=== PATIENT | male | born 1965 | race Caucasian/White ===

== ENCOUNTER 2016-10-10 07:32 | Outpatient (CLI) | payer OTHER ==
[2016-10-10 13:42] LABS: BASOPHILS % (AUTO) 0.5 %; EOSINOPHILS # (AUTO) 0.2 10^3/uL (0.0-0.7); EOSINOPHILS % (AUTO) 3.7 %; HCT - HEMATOCRIT 45.5 % (42.0-52.0); HGB - HEMOGLOBIN 14.7 g/dL (14.0-18.0); LYMPHOCYTES # (AUTO) 1.9 10^3/uL (1.5-3.5); LYMPHOCYTES % (AUTO) 28.4 %; MEAN CORPUSCULAR HEMOGLOBIN 26.3 pg (27.0-31.0); MEAN CORPUSCULAR HGB CONC 32.2 g/dL (32.0-36.0); MEAN CORPUSCULAR VOLUME 81.7 fL (80.0-94.0); MONOCYTES # (AUTO) 0.6 10^3/uL (0.0-1.0); NEUTROPHILS # (AUTO) 3.8 10^3/uL (1.5-6.6); NEUTROPHILS % (AUTO) 58.4 %; RED BLOOD COUNT 5.57 10^6/uL (4.70-6.10); UNCORRECTED WHITE BLOOD COUNT 6.6 x10^3/uL; WHITE BLOOD COUNT 6.6 x10^3/uL (4.8-10.8)
[2016-10-10 13:56] LABS: HEMOGLOBIN A1C 0.62 g/dL
[2016-10-10 13:57] LABS: ALBUMIN/GLOBULIN RATIO 1.3 (1.0-2.2); BILIRUBIN,TOTAL 1.1 mg/dL (0.2-1.0); BUN - BLOOD UREA NITROGEN 13 mg/dL (6-20); CALCIUM 9.3 mg/dL (8.5-10.3); CARBON DIOXIDE - CO2 26 mmol/L (21-32); CHLORIDE 104 mmol/L (101-111); CHOL/HDL RATIO 6.6 (<5.0); CHOLESTEROL 206 mg/dL; GFR - MDRD 79 (>89); GLUCOSE 95 mg/dL (70-100); HDL CHOLESTEROL 31 mg/dL; LDL/HDL RATIO 5.2 (<3.6); POTASSIUM 4.2 mmol/L (3.5-5.0); SODIUM 138 mmol/L (135-145); TOTAL PROTEIN 7.6 g/dL (6.7-8.2); TRIGLYCERIDES 74 mg/dL; VLDL CHOLESTEROL 15 mg/dL
== END 2016-10-10 07:33 | disposition home or self-care (01) ==
LOC: LAB.WCP 07:32
PROVIDERS: ATTEND Family Medicine
DX: Z00.00 Encounter for general adult medical examination without abnormal findings (principal)
CPT/HCPCS: 36415; 80053; 80061; 83036; 84153; 84443; 85025

== ENCOUNTER 2016-11-18 11:49 | Day surgery (SDC) | payer OTHER ==
[2016-11-18] MEDS ORDERED: LACTATED RINGERS 1,000 ML IV ONE (12:35)
[2016-11-18] MEDS ORDERED: MIDAZOLAM 2 MG/2 ML VIAL IVP ONE (13:25)
[2016-11-18] MEDS ORDERED: fentaNYL 100 MCG/2 ML VIAL IVP ONE (13:25)
[2016-11-18 14:52] VITALS: BP 114/65
== END 2016-11-18 11:50 | disposition home or self-care (01) ==
LOC: SDS 11:49 → MERGE 13:00
PROVIDERS: ATTEND Surgery
PROC: 0DBL8ZX Excision of Transverse Colon, Via Natural or Artificial Opening Endoscopic, Diagnostic (ICD-10-PCS; 2016-11-18)
PROC: 0DBN8ZX Excision of Sigmoid Colon, Via Natural or Artificial Opening Endoscopic, Diagnostic (ICD-10-PCS; 2016-11-18)
PROC: 0DBP8ZX Excision of Rectum, Via Natural or Artificial Opening Endoscopic, Diagnostic (ICD-10-PCS; principal; 2016-11-18 13:00)
DX: Z80.0 Family history of malignant neoplasm of digestive organs (principal); D36.15 Benign neoplasm of peripheral nerves and autonomic nervous system of abdomen; D12.3 Benign neoplasm of transverse colon; K63.5 Polyp of colon; K62.1 Rectal polyp; K57.30 Diverticulosis of large intestine without perforation or abscess without bleeding; I10 Essential (primary) hypertension; E78.5 Hyperlipidemia, unspecified; Z82.3 Family history of stroke; Z82.49 Family history of ischemic heart disease and other diseases of the circulatory system; Z83.3 Family history of diabetes mellitus; Z80.49 Family history of malignant neoplasm of other genital organs
CPT/HCPCS: 45384; J7120

== ENCOUNTER 2017-08-03 16:17 | Emergency (ER) | payer OTHER ==
--- NOTE | 2017-08-03 16:33 | ED Physician Documentation ---
PD HPI BACK INJURY - Stated complaint Stated Complaint: BACK INJ - History obtained from History obtained from: Patient - History of Present Illness Type of injury: Twist Timing - onset: Today (reaching for a box today at 9am and felt back tighten up and worsening since then. Now radiates to front of thighs. No weakness/numbness/ tingling or saddle anesthesia or incontinence. Had a similar episode 12 years ago tx with mucle relaxers and rest and improved after a few days.) Review of Systems Constitutional: reports: Reviewed and negative Ears: reports: Reviewed and negative Nose: reports: Reviewed and negative Musculoskeletal: reports: Back pain. denies: Neck pain PD PAST MEDICAL HISTORY - Past Medical History Cardiovascular: Hypertension, High cholesterol Respiratory: Sleep apnea Endocrine/Autoimmune: None GI: None : None HEENT: None Psych: None Musculoskeletal: None Derm: None - Past Surgical History Ortho: Rotator cuff repair - Present Medications Home Medications: Ambulatory Orders Medication Instructions Recorded Confirmed Multivitamin [Multiple Vitamins] 1 each PO DAILY 11/18/16 11/18/16 Cyclobenzaprine [Flexeril] 10 mg PO TID PRN #20 tablet 08/03/17 HYDROcod/ACETAM 5/325 [[place] 5/325] 1 - 2 ea PO Q6H PRN #10 tablet 08/03/17 - Allergies Allergies/Adverse Reactions: Allergies Allergy/AdvReac Type Severity Reaction Status Date / Time bee venom protein (honey bee) Allergy Unknown Verified 11/18/16 12:34 PD ED PE NORMAL - Vitals Vital signs reviewed: Yes - General General: Alert and oriented X 3, No acute distress - Neck Neck: Supple, no meningeal sign, No bony TTP - Back Back: No spinal TTP - Extremities Extremities: Other (The patient has equal and normal Achilles and patellar reflexes bilaterally. Normal sensation in all areas of the legs. Patient denies saddle anesthesia. Normal strength in flexion-extension at the ankles, knees, and flexion of the hips.) - Neuro Neuro: Alert and oriented X 3, Normal speech Results - Vitals Vitals: Vital Signs - 24 hr 08/03/17 16:29 Temperature 37.6 C H Heart Rate 82 Respiratory 18 Rate Blood Pressure 168/112 H O2 Saturation 98 Oxygen O2 Source Room air Departure - Departure Disposition: 01 Home, Self Care Clinical Impression: Back pain Qualifiers: Back pain location: low back pain Chronicity: acute Back pain laterality: bilateral Sciatica presence: without sciatica Qualified Code(s): M54.5 - Low back pain Condition: Good Record reviewed to determine appropriate education?: Yes Instructions: ED Low Back Pain Injury Prescriptions: Cyclobenzaprine [Flexeril] 10 mg PO TID PRN #20 tablet PRN Reason: Pain HYDROcod/ACETAM 5/325 [[place] 5/325] 1 - 2 ea PO Q6H PRN #10 tablet PRN Reason: Pain Comments: Your blood pressure was elevated today on check into the emergency department. This does not mean that you have hypertension, it is a common phenomenon to come to the emergency department and have elevated blood pressure. I recommend that you see your primary care physician within the week to have it rechecked when you are feeling better. Call your doctor to arrange a follow-up appointment, make the next available appointment. In the interim, return anytime if worse or if new symptoms develop. Do not drink or drive while taking narcotic pain medication. Note that many narcotic pain relievers also contain Tylenol/acetaminophen. Please ensure that your total dose of acetaminophen from all sources does not exceed 3 g (3000 mg) per day. You may get constipated while on this medication. Take a stool softener such as Colace twice a day while you are on it. Also add an pidi-yto-qthhxxr laxative such as senna or MiraLAX on any day that you do not have a bowel movement. If you received a narcotic pain medication or sedative while in the emergency department, do not drive for the next 24 hours. Forms: Activity restrictions
[2017-08-03] MEDS ORDERED: KETOROLAC 30 MG/ML VIAL IM STA (16:37)
[2017-08-03] MEDS ORDERED: MORPHINE 10 MG/ML VIAL IM STA (16:37)
[2017-08-03 17:10] VITALS: BP 138/98
== END 2017-08-03 17:09 | disposition home or self-care (01) ==
LOC: ED 16:17
DX: M54.5 Low back pain (principal); I10 Essential (primary) hypertension; E78.00 Pure hypercholesterolemia, unspecified
CPT/HCPCS: 96372; 99283

== ENCOUNTER 2018-07-05 10:00 | Outpatient (CLI) | payer OTHER | END 2018-07-05 10:01 | disposition home or self-care (01) | LOC: LAB.WCP 10:00 | PROVIDERS: ATTEND Family Medicine | DX: J06.9 Acute upper respiratory infection, unspecified (principal) | CPT/HCPCS: 87275; 87276 ==

== ENCOUNTER 2018-07-19 11:26 | Outpatient (CLI) | payer OTHER ==
--- NOTE | 2018-07-19 13:30 | XRAY Report ---
Reason: COUGH,SHORTNESS OF BREATH Procedure Date: 07/19/2018 Accession Number: [id number] / [id number] Procedure: WCP - Chest 2 View X-Ray CPT Code: 20532 FULL RESULT: EXAM: CHEST RADIOGRAPHY EXAM DATE: 07/19/2018 11:45 AM. CLINICAL HISTORY: Cough, shortness of breath. COMPARISON: None. TECHNIQUE: 2 views. FINDINGS: Lungs/Pleura: No focal opacities evident. No pleural effusion. No pneumothorax. Normal volumes. Mediastinum: Heart and mediastinal contours are unremarkable. Other: None. IMPRESSION: Normal 2-view chest radiography. RADIA
== END 2018-07-19 11:27 | disposition home or self-care (01) ==
LOC: DI.WCP 11:26
PROVIDERS: ATTEND Physician Assistant
DX: R05 Cough (principal); R06.02 Shortness of breath
CPT/HCPCS: 71046

== ENCOUNTER 2018-07-23 08:00 | Outpatient (CLI) | payer OTHER ==
[2018-07-23 12:55] LABS: BASOPHILS % (AUTO) 0.4 %; EOSINOPHILS # (AUTO) 0.1 10^3/uL (0.0-0.7); EOSINOPHILS % (AUTO) 1.2 %; HGB - HEMOGLOBIN 15.1 g/dL (14.0-18.0); LYMPHOCYTES # (AUTO) 1.5 10^3/uL (1.5-3.5); LYMPHOCYTES % (AUTO) 18.5 %; MEAN CORPUSCULAR HEMOGLOBIN 26.4 pg (27.0-31.0); MEAN CORPUSCULAR HGB CONC 32.1 g/dL (32.0-36.0); MEAN CORPUSCULAR VOLUME 82.5 fL (80.0-94.0); MEAN PLATELET VOLUME 10.2 fL (7.4-11.4); MONOCYTES % (AUTO) 12.1 %; NEUTROPHILS # (AUTO) 5.7 10^3/uL (1.5-6.6); NEUTROPHILS % (AUTO) 67.8 %; PLT - PLATELET COUNT 249 10^3/uL (130-450); RED BLOOD COUNT 5.73 10^6/uL (4.70-6.10); RED CELL DISTRIBUTION WIDTH 13.4 % (12.0-15.0); WHITE BLOOD COUNT 8.4 x10^3/uL (4.8-10.8)
[2018-07-23 13:39] LABS: ALBUMIN 3.7 g/dL (3.2-5.5); ALKALINE PHOSPHATASE 32 IU/L (42-121); ALT ALANINE AMINOTRANSFERASE 22 IU/L (10-60); AST ASPARTATE AMINOTRANSFERASE 14 IU/L (10-42); BILIRUBIN,TOTAL 0.9 mg/dL (0.2-1.0); BUN - BLOOD UREA NITROGEN 19 mg/dL (6-20); CALCIUM 8.8 mg/dL (8.5-10.3); CARBON DIOXIDE - CO2 26 mmol/L (21-32); CHLORIDE 103 mmol/L (101-111); CHOL/HDL RATIO 5.6 (<5.0); CHOLESTEROL 195 mg/dL; CREATININE 0.8 mg/dL (0.6-1.2); GFR - MDRD 101 (>89); GLUCOSE 79 mg/dL (70-100); HB2 TOTAL 16.2 g/dL; HDL CHOLESTEROL 35 mg/dL; HEMOGLOBIN A1C 0.66 g/dL; HEMOGLOBIN A1C % 5.9 % (4.6-6.2); LDL CHOLESTEROL,CALCULATED 145 mg/dL; LDL/HDL RATIO 4.1 (<3.6); SODIUM 136 mmol/L (135-145); TOTAL PROTEIN 7.5 g/dL (6.7-8.2); VLDL CHOLESTEROL 15 mg/dL
== END 2018-07-23 23:59 | disposition home or self-care (01) ==
LOC: LAB.WCP 08:00
PROVIDERS: ATTEND Family Medicine
DX: Z00.00 Encounter for general adult medical examination without abnormal findings (principal); E78.5 Hyperlipidemia, unspecified; R73.01 Impaired fasting glucose
CPT/HCPCS: 36415; 80053; 80061; 83036; 83721; 84443; 85025

== ENCOUNTER 2018-09-13 14:56 | Outpatient (CLI) | payer OTHER | END 2018-09-13 14:57 | disposition home or self-care (01) | LOC: SC 14:56 | PROVIDERS: ATTEND Internal Medicine Pulmonary Disease | DX: G47.33 Obstructive sleep apnea (adult) (pediatric) (principal); E66.9 Obesity, unspecified; Z68.39 Body mass index [BMI] 39.0-39.9, adult | CPT/HCPCS: 99203; 99212 ==

== ENCOUNTER 2018-09-16 08:20 | Outpatient (CLI) | payer OTHER ==
[2018-09-16 13:18] LABS: ALBUMIN 4.4 g/dL (3.2-5.5); ALBUMIN/GLOBULIN RATIO 1.3 (1.0-2.2); ALKALINE PHOSPHATASE 31 IU/L (42-121); ALT ALANINE AMINOTRANSFERASE 21 IU/L (10-60); AST ASPARTATE AMINOTRANSFERASE 19 IU/L (10-42); BILIRUBIN,TOTAL 0.7 mg/dL (0.2-1.0); BUN - BLOOD UREA NITROGEN 15 mg/dL (6-20); CALCIUM 9.2 mg/dL (8.5-10.3); CARBON DIOXIDE - CO2 24 mmol/L (21-32); CHLORIDE 104 mmol/L (101-111); CHOL/HDL RATIO 4.9 (<5.0); CHOLESTEROL 165 mg/dL; CREATININE 0.9 mg/dL (0.6-1.2); GFR - MDRD 88 (>89); GLUCOSE 92 mg/dL (70-100); HDL CHOLESTEROL 34 mg/dL; LDL CHOLESTEROL,CALCULATED 114 mg/dL; LDL/HDL RATIO 3.4 (<3.6); SODIUM 137 mmol/L (135-145); TOTAL PROTEIN 7.8 g/dL (6.7-8.2); VLDL CHOLESTEROL 17 mg/dL
[2018-09-16 13:45] LABS: HEMOGLOBIN A1C 0.66 g/dL; HEMOGLOBIN A1C % 5.7 % (4.6-6.2)
== END 2018-09-16 08:21 | disposition home or self-care (01) ==
LOC: LAB.WCP 08:20
PROVIDERS: ATTEND Family Medicine
DX: E78.5 Hyperlipidemia, unspecified (principal); R73.01 Impaired fasting glucose; Z12.5 Encounter for screening for malignant neoplasm of prostate
CPT/HCPCS: 36415; 80053; 80061; 83036; 83721; 84153

== ENCOUNTER 2018-10-12 19:20 | Outpatient (CLI) | payer OTHER | END 2018-10-12 19:21 | disposition home or self-care (01) | LOC: SC 19:20 | PROVIDERS: ATTEND Internal Medicine Pulmonary Disease | DX: G47.33 Obstructive sleep apnea (adult) (pediatric) (principal); G47.61 Periodic limb movement disorder | CPT/HCPCS: 95810 ==

== ENCOUNTER 2018-11-02 20:47 | Emergency (ER) | payer OTHER ==
[2018-11-02] MEDS ORDERED: ONDANSETRON 4 MG/2 ML VIAL IVP STA (21:18)
[2018-11-02] MEDS ORDERED: HYDROmorphone 1 MG/ML CARPUJECT IVP STA (21:18)
--- NOTE | 2018-11-02 21:27 | ED Physician Documentation ---
PD HPI ABD PAIN - Stated complaint Stated Complaint: ABD CRAMP/FEVER - Chief complaint Chief Complaint: Abd Pain - History obtained from History obtained from: Patient - History of Present Illness Timing - onset: Other (53-year-old history of colonic polyps and known diverticulosis presents with about 5 days of some odd stools with constipation and diarrhea, now 3 days of lower abdominal cramping radiating towards the rectum with nausea and a fever at home today. Although he has known diverticulosis from prior colonoscopies he has no known history of diverticulitis.) Review of Systems Constitutional: reports: Fever, Chills, Fatigue Nose: reports: Reviewed and negative Cardiac: reports: Reviewed and negative Respiratory: reports: Reviewed and negative GI: reports: Abdominal Pain, Nausea, Constipation, Diarrhea. denies: Vomiting, Hematemesis, Bloody / black stool : denies: Dysuria PD PAST MEDICAL HISTORY - Past Medical History Cardiovascular: Hypertension, High cholesterol Respiratory: Sleep apnea Endocrine/Autoimmune: None GI: None : None HEENT: None Psych: None Musculoskeletal: None Derm: None - Past Surgical History Ortho: Rotator cuff repair - Present Medications Home Medications: Ambulatory Orders Medication Instructions Recorded Confirmed Cyclobenzaprine [Flexeril] 10 mg PO TID PRN #20 tablet 08/03/17 RX: HYDROcod/ACETAM 5/325 [[place] 1 - 2 ea PO Q6H PRN #10 tablet 08/03/17 5/325] Ciprofloxacin HCl [Cipro] 500 mg PO BID #20 tablet 11/02/18 Hydrocodone/Acetaminophen 1 - 2 each PO Q6H PRN #14 tablet 11/02/18 [Hydrocodon-Acetaminophen 5-325] Metronidazole [Flagyl] 500 mg PO TID #30 tablet 11/02/18 - Allergies Allergies/Adverse Reactions: Allergies Allergy/AdvReac Type Severity Reaction Status Date / Time bee venom protein (honey bee) Allergy Unknown Verified 11/02/18 20:54 - Social History Does the pt smoke?: No Smoking Status: Never smoker PD ED PE NORMAL - Vitals Vital signs reviewed: Yes - General General: Alert and oriented X 3, No acute distress - HEENT HEENT: PERRL, EOMI - Neck Neck: Supple, no meningeal sign, No bony TTP - Cardiac Cardiac: No murmur, Other (mild tachycardia) - Respiratory Respiratory: No respiratory distress, Clear bilaterally - Abdomen Abdomen: Normal bowel sounds, Soft, Other (mod LLQ TTP) - Back Back: No CVA TTP, No spinal TTP - Derm Derm: No rash - Extremities Extremities: No edema, No calf tenderness / cord - Neuro Neuro: Alert and oriented X 3, Normal speech Results - Vitals Vitals: Vital Signs - 24 hr 11/02/18 11/02/18 11/02/18 20:51 20:54 22:57 Temperature 37.9 C H 37.9 C H 38.1 C H Heart Rate 105 H 105 H 101 H Respiratory 19 19 18 Rate Blood Pressure 164/87 H 164/87 H 120/74 O2 Saturation 99 99 95 Oxygen O2 Source Room air - Labs Labs: Laboratory Tests 11/02/18 11/02/18 11/02/18 21:25 21:25 21:29 WBC 11.2 H RBC 5.72 Hgb 15.2 Hct 48.1 MCV 84.1 MCH 26.6 L MCHC 31.6 L RDW 14.0 Plt Count 212 MPV 12.1 H Neut # (Auto) 8.9 H Lymph # (Auto) 1.2 L [place] # (Auto) 1.0 Eos # (Auto) 0.1 Baso # (Auto) 0.1 Absolute Nucleated RBC 0.00 Nucleated RBC % 0.0 Sodium 136 Potassium 4.1 Chloride 98 L Carbon Dioxide 23 Anion Gap 15.0 H BUN 19 Creatinine 1.1 Estimated GFR (MDRD) 70 L Glucose 112 H Calcium 9.3 Total Bilirubin 1.3 H AST 17 ALT 23 Alkaline Phosphatase 30 L Total Protein 7.9 Albumin 4.3 Globulin 3.6 Albumin/Globulin Ratio 1.2 Lipase 26 Urine Color YELLOW Urine Clarity CLEAR Urine pH 5.5 Ur Specific [place] 1.010 Urine Protein NEGATIVE Urine Glucose (UA) NEGATIVE Urine Ketones 15 H Urine Occult Blood MODERATE H Urine Nitrite NEGATIVE Urine Bilirubin NEGATIVE Urine Urobilinogen 0.2 (NORMAL) Ur Leukocyte Esterase NEGATIVE Urine RBC 0-5 Urine WBC 0-3 Ur Squamous Epith Cells FEW Squamous Urine Bacteria None Seen Ur Microscopic Review INDICATED Urine Culture Comments NOT INDICATED PD MEDICAL DECISION MAKING - ED course ED course: 53yo with H/P C/W diverticulitis and CT confirmaing same. [place] well enough to go home on PO abx. Discussed diet, expected course and followup. Departure - Departure Disposition: 01 Home, Self Care Clinical Impression: Diverticulitis of gastrointestinal tract, Bilateral renal cysts Condition: Good Record reviewed to determine appropriate education?: Yes Instructions: ED Diverticulitis Prescriptions: Ciprofloxacin HCl [Cipro] 500 mg PO BID #20 tablet Hydrocodone/Acetaminophen [Hydrocodon-Acetaminophen 5-325] 1 - 2 each PO Q6H PRN #14 tablet PRN Reason: pain Metronidazole [Flagyl] 500 mg PO TID #30 tablet Comments: Do not drink alcohol while on antibiotics. Follow-up with your doctor in 2 to 3 days for recheck. Return here for new or worsening symptoms. As discussed you do have bilateral kidney cysts. Your kidney function right now is fine but this needs to be monitored by your physician. Your blood pressure was elevated today on check into the emergency department. This does not mean that you have hypertension, it is a common phenomenon to come to the emergency department and have elevated blood pressure. I recommend that you see your primary care physician within the week to have it rechecked when you are feeling better. Discharge Date/Time: 11/02/18 23:00
[2018-11-02] MEDS ORDERED: SODIUM CHLORIDE 0.9% 1,000 ML IV ONE (21:29)
[2018-11-02 21:35] LABS: BASOPHILS # (AUTO) 0.1 10^3/uL (0.0-0.1); BASOPHILS % (AUTO) 0.4 %; EOSINOPHILS # (AUTO) 0.1 10^3/uL (0.0-0.7); EOSINOPHILS % (AUTO) 1.2 %; HGB - HEMOGLOBIN 15.2 g/dL (14.0-18.0); LYMPHOCYTES # (AUTO) 1.2 10^3/uL (1.5-3.5); LYMPHOCYTES % (AUTO) 10.3 %; MEAN CORPUSCULAR HEMOGLOBIN 26.6 pg (27.0-31.0); MEAN CORPUSCULAR HGB CONC 31.6 g/dL (32.0-36.0); MEAN CORPUSCULAR VOLUME 84.1 fL (80.0-94.0); MEAN PLATELET VOLUME 12.1 fL (7.4-11.4); MONOCYTES % (AUTO) 8.9 %; NEUTROPHILS # (AUTO) 8.9 10^3/uL (1.5-6.6); NEUTROPHILS % (AUTO) 78.9 %; PLT - PLATELET COUNT 212 10^3/uL (130-450); RED BLOOD COUNT 5.72 10^6/uL (4.70-6.10); WHITE BLOOD COUNT 11.2 x10^3/uL (4.8-10.8)
[2018-11-02 21:36] LABS: BILIRUBIN,URINE NEGATIVE (NEGATIVE); GLUCOSE, URINE (UA) NEGATIVE (NEGATIVE); KETONES,URINE (UA) 15 mg/dL (NEGATIVE); LEUKOCYTE ESTERASE, URINE NEGATIVE (NEGATIVE); NITRITE,URINE NEGATIVE (NEGATIVE); OCCULT BLOOD,URINE MODERATE (NEGATIVE); PH,URINE 5.5 PH (5.0-7.5); PROTEIN,URINE NEGATIVE (NEGATIVE); UROBILINOGEN,URINE 0.2 (NORMAL) E.U./dL (NORMAL)
[2018-11-02 21:38] LABS: CLARITY,URINE CLEAR (CLEAR)
[2018-11-02] MEDS ORDERED: IOVERSOL 320 100 ML VIAL IVP ONE ×2 (21:41→22:11)
[2018-11-02 21:50] LABS: BACTERIA,URINE None Seen /HPF (None Seen); RBC,URINE 0-5 /HPF (0-5); SQUAMOUS EPITHELIAL CELL,UR FEW Squamous (<= Few)
[2018-11-02 21:54] LABS: ALBUMIN 4.3 g/dL (3.2-5.5); ALBUMIN/GLOBULIN RATIO 1.2 (1.0-2.2); BILIRUBIN,TOTAL 1.3 mg/dL (0.2-1.0); CALCIUM 9.3 mg/dL (8.5-10.3); CREATININE 1.1 mg/dL (0.6-1.2); TOTAL PROTEIN 7.9 g/dL (6.7-8.2)
--- NOTE | 2018-11-02 22:41 | CT Report ---
Reason: IV only, LLQ pain Procedure Date: 11/02/2018 Accession Number: [id number] / [id number] Procedure: CT - Abdomen/Pelvis W CPT Code: FULL RESULT: EXAM: CT ABDOMEN AND PELVIS WITH CONTRAST. EXAM DATE: 11/02/2018 10:12 PM. CLINICAL HISTORY: Left lower quadrant abdominal pain. COMPARISONS: None. TECHNIQUE: Routine helical CT imaging was performed through the abdomen and pelvis. IV contrast: 100 mL Optiray 320. Enteric contrast: No. Reconstructions: Coronal and sagittal. In accordance with CT protocol optimization, one or more of the following dose reduction techniques were utilized for this exam: automated exposure control, adjustment of mA and/or KV based on patient size, or use of iterative reconstructive technique. FINDINGS: ABDOMEN: Liver: No significant abnormality. Stomach/Distal Esophagus: No significant abnormality. Gallbladder: No significant abnormality. Bile Ducts: No significant abnormality. Pancreas: No significant abnormality. Spleen: No significant abnormality. Kidneys: Polycystic kidney disease noted, with innumerable renal lesions bilaterally. Some of these are slightly heterogeneous in appearance. Adrenals: No significant abnormality. Bowel: Moderate inflammatory fat straining is noted around the distal sigmoid colon (image 79 series 3). Moderate to severe sigmoid diverticulosis and moderate descending colon diverticulosis noted. Mild pancolonic proximal diverticulosis. No obstruction. Average fecal residual. Appendix: Normal. Lymph Nodes: No pathologically enlarged nodes. Vasculature: Normal caliber aorta. Fluid: No significant free fluid. Abdominal Wall: No significant abnormality. Other: No significant abnormality. PELVIS: Prostate and Seminal Vesicles: No significant abnormality. Bladder: No significant abnormality. Lymph Nodes: No pathologically enlarged nodes. Fluid: No significant free fluid. Other: None. BONES: No suspicious bony lesions. Moderate multilevel degenerative change within the spine. LOWER CHEST: No significant consolidation or effusion. IMPRESSION: 1. Moderate to severe acute distal sigmoid diverticulitis. Moderate to severe sigmoid diverticulosis. No evidence of an abscess. 2. Polycystic kidney disease. No hydronephrosis demonstrated. RADIA
[2018-11-02] MEDS ORDERED: CIPROFLOXACIN 250 MG TABLET PO STA (22:43)
[2018-11-02] MEDS ORDERED: ONDANSETRON ODT 4 MG Prepack 2 TL STA (22:43)
[2018-11-02] MEDS ORDERED: HYDROcod/ACET 5/325 Prepack 4 PO STA (22:43)
[2018-11-02] MEDS ORDERED: metroNIDAZOLE 250 MG TABLET PO STA (22:43)
[2018-11-02 22:59] VITALS: BP 120/74
== END 2018-11-02 23:00 | disposition home or self-care (01) ==
LOC: ED 20:47
DX: K57.32 Diverticulitis of large intestine without perforation or abscess without bleeding (principal); Q61.02 Congenital multiple renal cysts; I10 Essential (primary) hypertension
CPT/HCPCS: 36415; 74177; 80053; 81001; 83690; 85025; 96361; 96374; 99283; 99284; A9270; J1170; Q9967; 81003; 87086

== ENCOUNTER 2018-11-04 08:16 | Outpatient (CLI) | payer OTHER | END 2018-11-04 08:17 | disposition home or self-care (01) | LOC: SC 08:16 | PROVIDERS: ATTEND Nurse Practitioner Family | DX: G47.33 Obstructive sleep apnea (adult) (pediatric) (principal); G47.61 Periodic limb movement disorder; G25.81 Restless legs syndrome | CPT/HCPCS: 99212; 99215 ==

== ENCOUNTER 2018-11-11 08:36 | Outpatient (CLI) | payer OTHER ==
[2018-11-11 12:46] LABS: BASOPHILS % (AUTO) 0.6 %; EOSINOPHILS # (AUTO) 0.2 10^3/uL (0.0-0.7); EOSINOPHILS % (AUTO) 2.9 %; HGB - HEMOGLOBIN 15.4 g/dL (14.0-18.0); LYMPHOCYTES # (AUTO) 1.5 10^3/uL (1.5-3.5); LYMPHOCYTES % (AUTO) 21.9 %; MEAN CORPUSCULAR HEMOGLOBIN 26.8 pg (27.0-31.0); MEAN CORPUSCULAR HGB CONC 31.5 g/dL (32.0-36.0); MEAN PLATELET VOLUME 12.2 fL (7.4-11.4); MONOCYTES # (AUTO) 0.7 10^3/uL (0.0-1.0); MONOCYTES % (AUTO) 9.9 %; NEUTROPHILS # (AUTO) 4.5 10^3/uL (1.5-6.6); PLT - PLATELET COUNT 280 10^3/uL (130-450); RED BLOOD COUNT 5.75 10^6/uL (4.70-6.10); RED CELL DISTRIBUTION WIDTH 14.1 % (12.0-15.0)
[2018-11-11 13:32] LABS: % IRON SATURATION 46 % (20-50); IRON 115 ug/dL (45-182); TOTAL IRON BINDING CAPACITY 252 ug/dL (250-450); TRANSFERRIN 180 mg/dL (180-329)
== END 2018-11-11 23:59 | disposition home or self-care (01) ==
LOC: LAB.WCP 08:36
PROVIDERS: ATTEND Family Medicine
DX: G25.81 Restless legs syndrome (principal); K57.92 Diverticulitis of intestine, part unspecified, without perforation or abscess without bleeding; G47.30 Sleep apnea, unspecified; R00.2 Palpitations
CPT/HCPCS: 36415; 82728; 83540; 84466; 85025

== ENCOUNTER 2019-01-17 15:01 | Outpatient (CLI) | payer OTHER ==
--- NOTE | 2019-01-17 15:54 | SLEEP CARE CONSULTATION ---
Information from patient questionnaire entered by Montserrat Rey. I have reviewed and concur with the information entered by Montserrat Rey. This document represents the service I personally performed and the decisions made by me, Omid Epperson MD, [facility]. History of Present Illness Previous diagnosis: Moderate, Obstructive Sleep Apnea-Hypopnea Syndrome AHI: 17.8 Reason for CPAP/BiPAP follow up: first compliance Equipment type: CPAP Equipment obtained from: [facility] Prior sleep studies: Yes Year and Where: 2018 [facility] additional information: HPI: Mr. Tinajero returned today for follow up of nasal CPAP therapy. He was diagnosed to have moderate obstructive sleep apnea-hypopnea syndrome. The patient a wears a nasal mask. He reports using the device nightly and all through the night. The compliance report shows usage in 28 nights out of the past 2 nights, averaging 6.9 hours a night. He complained of water condensing in the mask and tubing when he first turns it on. No particular problem with the device such as soreness on the face, dry nose, epistaxis, nasal congestion or headache. He thinks that the pressure of 4 15 cmH2O is comfortable. On the CPAP therapy he notices improvement in his sleep quality, and that he wakes up feeling fresher in the morning and more awake/alert during the day. His notices no snore at all. The average residual AHI is 0.9; and large air leak, 1.7 minutes a night. The 90th percentile pressure is 6.4 cmH2O. CPAP Compliance Data - Data Reviewed with Patient Average duration of nightly device use: 6h 55m Compliance rate %: 93.3 Current pressure setting (cmH2O): 4-15 Humidity settin Heated hose settin Average residual AHI: 0.9 Subjective Patient concerns: reports: condensation in mask/hose Current pressure setting perceived as: comfortable Initial [place] Sleepiness Scale score: 7 Current [place] Sleepiness Scale score: 5 Allergies and Home Medications Drug allergies reviewed: Yes Home medication list reviewed: Yes Review of Systems Review of systems same as previous: Yes Physical Exam Height: 5 ft 10.5 in Weight: 274 lb Body Mass Index: 38.7 BMI Classification: Obesity Class 2 Impression and Plan IMPRESSION: 1. Obstructive Sleep Apnea-Hypopnea Syndrome, moderate, with the patient doing well on nasal CPAP therapy. He has excellent compliance and significant clinical improvement. The current pressure appears effective and comfortable. Overall, he is very satisfied with treatment and plans to continue with it long- term. No adjustment is necessary today. PLAN: 1. Continue with autoCPAP set at 4 - 15 cmH2O. 2. Try to lose weight 3. Try other masks and nasal pillows. 4. The patient was instructed on how to lower the heated humidifier setting. 4. Return in one year for follow up or earlier if there is any problem with the treatment. I spent 100% of this 20 minute visit face to face with the patient with greater than 50% of this was spent time counseling the patient and coordination of care.
== END 2019-01-17 15:02 | disposition home or self-care (01) ==
LOC: SC 15:01
PROVIDERS: ATTEND Internal Medicine Pulmonary Disease
DX: G47.33 Obstructive sleep apnea (adult) (pediatric) (principal); E66.9 Obesity, unspecified; Z68.38 Body mass index [BMI] 38.0-38.9, adult
CPT/HCPCS: 99212; 99213

== ENCOUNTER 2019-05-06 07:00 | Outpatient (CLI) | payer OTHER ==
[2019-05-06 19:05] LABS: BASOPHILS # (AUTO) 0.1 10^3/uL (0.0-0.1); BASOPHILS % (AUTO) 0.7 %; EOSINOPHILS # (AUTO) 0.2 10^3/uL (0.0-0.7); EOSINOPHILS % (AUTO) 2.2 %; HGB - HEMOGLOBIN 15.6 g/dL (14.0-18.0); LYMPHOCYTES # (AUTO) 1.3 10^3/uL (1.5-3.5); LYMPHOCYTES % (AUTO) 17.2 %; MEAN CORPUSCULAR HGB CONC 31.1 g/dL (32.0-36.0); MEAN CORPUSCULAR VOLUME 86.8 fL (80.0-94.0); MEAN PLATELET VOLUME 12.6 fL (7.4-11.4); MONOCYTES # (AUTO) 0.6 10^3/uL (0.0-1.0); MONOCYTES % (AUTO) 7.7 %; NEUTROPHILS # (AUTO) 5.5 10^3/uL (1.5-6.6); NEUTROPHILS % (AUTO) 71.9 %; PLT - PLATELET COUNT 226 10^3/uL (130-450); RED BLOOD COUNT 5.77 10^6/uL (4.70-6.10); RED CELL DISTRIBUTION WIDTH 14.5 % (12.0-15.0); WHITE BLOOD COUNT 7.7 x10^3/uL (4.8-10.8)
[2019-05-06 19:17] LABS: ALBUMIN 4.4 g/dL (3.2-5.5); ALBUMIN/GLOBULIN RATIO 1.4 (1.0-2.2); ALKALINE PHOSPHATASE 28 IU/L (42-121); ALT ALANINE AMINOTRANSFERASE 19 IU/L (10-60); AST ASPARTATE AMINOTRANSFERASE 17 IU/L (10-42); BILIRUBIN,TOTAL 0.9 mg/dL (0.2-1.0); BUN - BLOOD UREA NITROGEN 17 mg/dL (6-20); CALCIUM 9.2 mg/dL (8.5-10.3); CARBON DIOXIDE - CO2 24 mmol/L (21-32); CHLORIDE 104 mmol/L (101-111); CHOL/HDL RATIO 6.6 (<5.0); CHOLESTEROL 211 mg/dL; GFR - MDRD 78 (>89); GLUCOSE 87 mg/dL (70-100); HDL CHOLESTEROL 32 mg/dL; LDL CHOLESTEROL,CALCULATED 163 mg/dL; LDL/HDL RATIO 5.1 (<3.6); SODIUM 139 mmol/L (135-145); TOTAL PROTEIN 7.6 g/dL (6.7-8.2); VLDL CHOLESTEROL 16 mg/dL
== END 2019-05-06 23:59 | disposition home or self-care (01) ==
LOC: LAB.WCP 07:00
PROVIDERS: ATTEND Family Medicine
DX: R68.82 Decreased libido (principal); R61 Generalized hyperhidrosis
CPT/HCPCS: 36415; 80053; 80061; 81599; 83721; 84443; 85025

== ENCOUNTER 2019-08-30 11:12 | Outpatient (CLI) | payer OTHER ==
--- NOTE | 2019-08-31 09:14 | XRAY Report ---
Reason: BACK PAIN,LUMBAR Procedure Date: 08/30/2019 Accession Number: [id number] / [id number] Procedure: XR - Lumbar Spine 2 View CPT Code: Final Report FULL RESULT: EXAM: LUMBOSACRAL SPINE RADIOGRAPHY 3 VIEWS EXAM DATE: 08/30/2019. CLINICAL HISTORY: Lumbar back pain. COMPARISONS: None. TECHNIQUE: AP, lateral and coned lateral of the lumbosacral junction views. FINDINGS: Alignment: Normal. No spondylolisthesis or scoliosis. Bones: No fracture or bone lesion. Small vertebral body osteophytes at all levels, largest at L3-L4. Disks: Moderate L4-L5 and L5-S1 narrowing, lesser narrowing from T12-L4. Facets: No degenerative changes visible. Sacroiliac Joints: Normal. Soft Tissues: Normal. The visualized bowel gas pattern is normal. IMPRESSION: Normal lumbar spine radiography. RADIA
== END 2019-08-30 11:13 | disposition home or self-care (01) ==
LOC: DI 11:12
PROVIDERS: ATTEND Family Medicine
DX: M54.5 Low back pain (principal)
CPT/HCPCS: 72100

== ENCOUNTER 2019-11-26 16:25 | Outpatient (CLI) | payer OTHER ==
--- NOTE | 2019-11-26 17:44 | Ultrasound Report ---
PROCEDURE: Retroperitoneal INDICATIONS: POLYCYSTIC KIDNEY DISEASE TECHNIQUE: Real-time scanning was performed of the retroperitoneal organs, with image documentation. COMPARISON: Correlation is made with prior CT 11/02/2018 FINDINGS: Kidneys: Kidneys are prominent in size. Right kidney measures 16.3 cm long; left kidney measures 70 cm long. Right renal cortical thickness is 1.4 cm; left renal cortical thickness is 1.5 cm. No viraj id masses, hydronephrosis, or nephrolithiasis. Consistent with the given history of polycystic kidney disease, numerous bilateral renal cysts are se en. No suspicious features are seen. The largest 3 on each side are as follows, listed superior to in ferior: Right superior, 3 x 3.3 x 3.2 cm Right mid kidney, 5.4 x 6 x 3.3 cm Right anterior medial, 5.2 x 3.8 x 5.8 cm Left kidney superiorly, 4.7 x 4 x 4.1 cm Left mid kidney medially, 5.2 x 5.4 x 5.5 cm Left mid kidney laterally, 4.8 x 3.1 x 4.2 cm The prevoid bladder volume is 354 cc. The post void bladder volume is 41 cc. Both ureteral jets can b e seen. Miscellaneous: No free abdominal fluid. IMPRESSION: Numerous simple appearing bilateral renal cysts are seen, which are consistent with the given clinica l history of polycystic kidney disease. Moderate postvoid residual, 41 cc. Reviewed by: Raz Meza MD on 11/26/2019 4:43 PM AKDT Approved by: Raz Meza MD on 11/26/2019 4:43 PM AKDT Station ID: [id number]
== END 2019-11-26 16:26 | disposition home or self-care (01) ==
LOC: DI 16:25
PROVIDERS: ATTEND Family Medicine
DX: Q61.3 Polycystic kidney, unspecified (principal)
CPT/HCPCS: 76770

== ENCOUNTER 2020-01-03 08:00 | Outpatient (CLI) | payer OTHER ==
[2020-01-11 18:39] LABS: BASOPHILS # (AUTO) 0.1 10^3/uL (0.0-0.1); BASOPHILS % (AUTO) 0.6 %; EOSINOPHILS # (AUTO) 0.2 10^3/uL (0.0-0.7); EOSINOPHILS % (AUTO) 2.8 %; HGB - HEMOGLOBIN 15.9 g/dL (14.0-18.0); LYMPHOCYTES # (AUTO) 1.9 10^3/uL (1.5-3.5); LYMPHOCYTES % (AUTO) 23.1 %; MEAN CORPUSCULAR HGB CONC 31.2 g/dL (32.0-36.0); MEAN CORPUSCULAR VOLUME 86.7 fL (80.0-94.0); MONOCYTES # (AUTO) 0.8 10^3/uL (0.0-1.0); MONOCYTES % (AUTO) 9.5 %; NEUTROPHILS # (AUTO) 5.3 10^3/uL (1.5-6.6); NEUTROPHILS % (AUTO) 63.5 %; PLT - PLATELET COUNT 255 10^3/uL (130-450); RED BLOOD COUNT 5.88 10^6/uL (4.70-6.10); RED CELL DISTRIBUTION WIDTH 14.2 % (12.0-15.0); WHITE BLOOD COUNT 8.4 x10^3/uL (4.8-10.8)
[2020-01-11 18:57] LABS: CALCIUM 9.4 mg/dL (8.5-10.3)
[2020-01-11 19:12] LABS: TOTAL PROTEIN,URINE TIMED < 6 mg/dL
== END 2020-01-03 23:59 ==
LOC: LAB.WCP 08:00
PROVIDERS: ATTEND Internal Medicine Nephrology
DX: N05.9 Unspecified nephritic syndrome with unspecified morphologic changes (principal); N18.9 Chronic kidney disease, unspecified; D63.1 Anemia in chronic kidney disease; R80.9 Proteinuria, unspecified; D70.9 Neutropenia, unspecified
CPT/HCPCS: 36415; 80048; 82570; 84156; 85025

== ENCOUNTER 2020-04-04 07:13 | Outpatient (CLI) | payer OTHER ==
[2020-04-04 11:54] LABS: BASOPHILS # (AUTO) 0.1 10^3/uL (0.0-0.1); BASOPHILS % (AUTO) 0.8 %; EOSINOPHILS # (AUTO) 0.3 10^3/uL (0.0-0.7); HGB - HEMOGLOBIN 15.8 g/dL (14.0-18.0); LYMPHOCYTES # (AUTO) 1.9 10^3/uL (1.5-3.5); LYMPHOCYTES % (AUTO) 25.7 %; MEAN CORPUSCULAR HEMOGLOBIN 27.3 pg (27.0-31.0); MEAN CORPUSCULAR HGB CONC 31.4 g/dL (32.0-36.0); MEAN CORPUSCULAR VOLUME 86.9 fL (80.0-94.0); MEAN PLATELET VOLUME 11.8 fL (7.4-11.4); MONOCYTES # (AUTO) 0.9 10^3/uL (0.0-1.0); MONOCYTES % (AUTO) 12.1 %; NEUTROPHILS # (AUTO) 4.2 10^3/uL (1.5-6.6); NEUTROPHILS % (AUTO) 57.3 %; PLT - PLATELET COUNT 219 10^3/uL (130-450); RED BLOOD COUNT 5.79 10^6/uL (4.70-6.10); RED CELL DISTRIBUTION WIDTH 14.2 % (12.0-15.0); WHITE BLOOD COUNT 7.3 x10^3/uL (4.8-10.8)
[2020-04-04 12:34] LABS: CALCIUM 9.3 mg/dL (8.5-10.3)
== END 2020-04-04 07:14 | disposition home or self-care (01) ==
LOC: LAB.N 07:13
PROVIDERS: ATTEND Orthopaedic Surgery Orthopaedic Surgery of the Spine
DX: Z01.812 Encounter for preprocedural laboratory examination (principal)
CPT/HCPCS: 36415; 80048; 85025

== ENCOUNTER 2020-05-16 00:24 | Emergency (ER) | payer OTHER ==
--- NOTE | 2020-05-16 01:02 | ED Physician Documentation ---
PD HPI BACK PAIN - Stated complaint Stated Complaint: LOWER BACK/RT SHOULDER PX - Chief complaint Chief Complaint: Back Pain - History obtained from History obtained from: Patient - History of Present Illness Timing - onset: Other (Thursday night (a little more than 24 hours [employer])) Timing - details: Abrupt onset Pain level now: 8 Location: Right Quality: Pain Associated symptoms: Fever (Tmax 100.6) Improves with: Other (standing, ambulating) Worsened by: Other (position (lying on right side (right side decubitus))) Similar symptoms before: No diagnosis Recently seen: Surgery - Additional information Additional information: c/o right low posterolateral chest pain that radiates to right shoulder, onset a little more than 24 hours [employer] while at home lying awake in bed. low-grade fever Tmax 100.6. mild pleuritic component to the pain and worse when lying on his right side. he underwent lumbar microdiscectomy last week. He noted mild RLE swelling 3 days ago (which was also 3 days post-operative) but this has since resolved. Review of Systems Constitutional: reports: Fever (Tmx 100.6). denies: Chills, Sweats Cardiac: reports: Chest pain / pressure, Pedal edema (resolved). denies: Palpitations, Calf pain Respiratory: denies: Dyspnea, Cough, Hemoptysis, Wheezing GI: denies: Abdominal Pain, Nausea, Vomiting, Constipation, Diarrhea : denies: Dysuria, Frequency, Hematuria Musculoskeletal: reports: Back pain (right parathoracic (part of chief complaint; the lumbar surgical site is not causing any discomfort)). denies: Neck pain, Extremity pain PD PAST MEDICAL HISTORY - Past Medical History Past Medical History: Yes Cardiovascular: Hypertension, High cholesterol Respiratory: Sleep apnea Neuro: None Endocrine/Autoimmune: None GI: None : None HEENT: None Psych: None Musculoskeletal: None Derm: None - Past Surgical History Past Surgical History: Yes Ortho: Rotator cuff repair - Present Medications Home Medications: Ambulatory Orders Medication Instructions Recorded Confirmed Cyclobenzaprine [Flexeril] 10 mg PO TID PRN #20 tablet 08/03/17 Azithromycin [Zithromax] 250 mg PO DAILY #4 tablet 05/16/20 - Allergies Allergies/Adverse Reactions: Allergies Allergy/AdvReac Type Severity Reaction Status Date / Time bee venom protein (honey bee) Allergy Unknown Verified 05/16/20 00:35 - Social History Does the pt smoke?: No Smoking Status: Never smoker Does the pt drink ETOH?: No Does the pt have substance abuse?: No - Immunizations Immunizations are current?: Yes - POLST Patient has POLST: No PD ED PE NORMAL - Vitals Vital signs reviewed: Yes - General General: Alert and oriented X 3, No acute distress, Well developed/nourished - Neck Neck: Supple, no meningeal sign, No JVD - Cardiac Cardiac: No murmur - Respiratory Respiratory: No respiratory distress, Clear bilaterally - Abdomen Abdomen: Normal bowel sounds, Soft, Non tender, Non distended - Back Back: No CVA TTP - Derm Derm: Normal color, Warm and dry, No rash, Other (right low paralumbar surgical site is c/d/i without swelling, discharge, or tenderness. ) - Extremities Extremities: No edema PD ED PE EXPANDED - Cardiac Cardiac: Tachy, Regular Rhythm Results - Vitals Vitals: Vital Signs - 24 hr 05/16/20 05/16/20 05/16/20 00:26 01:43 02:20 Temperature 37.2 C Heart Rate 110 H 95 Respiratory 18 15 16 Rate Blood Pressure 147/91 H 146/97 H O2 Saturation 94 97 05/16/20 05/16/20 05/16/20 03:41 03:47 05:31 Temperature Heart Rate 101 H 97 Respiratory 16 15 16 Rate Blood Pressure 143/90 H 141/90 H O2 Saturation 95 95 95 05/16/20 05:47 Temperature Heart Rate Respiratory 15 Rate Blood Pressure O2 Saturation Oxygen O2 Source Room air - EKG (time done) No standard instances Rate: Rate (enter#) (95) Rhythm: NSR [place]: Normal Intervals: Normal OR QRS: Normal Ischemia: Normal ST segments Computer interpretation: Disagree with computer (no ST elevation) - Labs Labs: Laboratory Tests 05/16/20 05/16/20 05/16/20 01:36 01:36 03:00 WBC 16.4 H RBC 5.76 Hgb 15.8 Hct 48.8 MCV 84.7 MCH 27.4 MCHC 32.4 RDW 13.5 Plt Count 238 MPV 11.4 Neut # (Auto) Not Reportable Lymph # (Auto) Not Reportable Person # (Auto) Not Reportable Eos # (Auto) Not Reportable Baso # (Auto) Not Reportable Absolute Nucleated RBC Not Reportable Total Counted 100 Band Neuts % (Manual) 4 Abnorm Lymph % (Manual) 0 Nucleated RBC % Not Reportable Neutrophils # (Manual) 12.1 H Lymphocytes # (Manual) 2.6 Monocytes # (Manual) 1.3 H Eosinophils # (Manual) 0.3 Basophils # (Manual) 0.0 Differential Comment MANUAL DIFFERENTIAL Platelet Estimate NORMAL (130-450,000) RBC Morph Micro Appear NORMAL APPEARANCE Sodium 132 L Potassium 4.1 Chloride 97 L Carbon Dioxide 24 Anion Gap 11.0 BUN 18 Creatinine 0.9 Estimated GFR (MDRD) 88 L Glucose 150 H Calcium 9.2 Total Bilirubin 1.4 H AST 17 ALT 28 Alkaline Phosphatase 36 L Total Protein 8.5 H Albumin 4.3 Globulin 4.2 Albumin/Globulin Ratio 1.0 Lipase 25 Urine Color Urine Clarity Urine pH Ur Specific [place] Urine Protein Urine Glucose (UA) Urine Ketones Urine Occult Blood Urine Nitrite Urine Bilirubin Urine Urobilinogen Ur Leukocyte Esterase Urine RBC Urine WBC Ur Squamous Epith Cells Urine Bacteria Ur Microscopic Review Urine Culture Comments Nasal Adenovirus (PCR) NOT DETECTED Nasal B. parapertussis DNA (PCR) NOT DETECTED Nasal Coronavir 229E PCR NOT DETECTED Nasal Coronavir HKU1 PCR NOT DETECTED Nasal Coronavir NL63 PCR NOT DETECTED Nasal Coronavir OC43 PCR NOT DETECTED Nasal Enterovir/Rhinovir PCR NOT DETECTED Nasal Influenza B PCR NOT DETECTED Nasal Influenza A PCR NOT DETECTED Nasal Parainfluen 1 PCR NOT DETECTED Nasal Parainfluen 2 PCR NOT DETECTED Nasal Parainfluen 3 PCR NOT DETECTED Nasal Parainfluen 4 PCR NOT DETECTED Nasal RSV (PCR) NOT DETECTED Nasal B.pertussis DNA PCR NOT DETECTED Nasal C.pneumoniae (PCR) NOT DETECTED Franco Human Metapneumo PCR NOT DETECTED Nasal M.pneumoniae (PCR) NOT DETECTED Nasal SARS-CoV-2 (PCR) NOT DETECTED 05/16/20 03:30 WBC RBC Hgb Hct MCV MCH MCHC RDW Plt Count MPV Neut # (Auto) Lymph # (Auto) Person # (Auto) Eos # (Auto) Baso # (Auto) Absolute Nucleated RBC Total Counted Band Neuts % (Manual) Abnorm Lymph % (Manual) Nucleated RBC % Neutrophils # (Manual) Lymphocytes # (Manual) Monocytes # (Manual) Eosinophils # (Manual) Basophils # (Manual) Differential Comment Platelet Estimate RBC Morph Micro Appear Sodium Potassium Chloride Carbon Dioxide Anion Gap BUN Creatinine Estimated GFR (MDRD) Glucose Calcium Total Bilirubin AST ALT Alkaline Phosphatase Total Protein Albumin Globulin Albumin/Globulin Ratio Lipase Urine Color YELLOW Urine Clarity CLEAR Urine pH 6.0 Ur Specific [place] <=1.005 Urine Protein NEGATIVE Urine Glucose (UA) NEGATIVE Urine Ketones NEGATIVE Urine Occult Blood SMALL H Urine Nitrite NEGATIVE Urine Bilirubin NEGATIVE Urine Urobilinogen 0.2 (NORMAL) Ur Leukocyte Esterase NEGATIVE Urine RBC 0-5 Urine WBC 0-3 Ur Squamous Epith Cells RARE Squamous Urine Bacteria None Seen Ur Microscopic Review INDICATED Urine Culture Comments NOT INDICATED Nasal Adenovirus (PCR) Nasal B. parapertussis DNA (PCR) Nasal Coronavir 229E PCR Nasal Coronavir HKU1 PCR Nasal Coronavir NL63 PCR Nasal Coronavir OC43 PCR Nasal Enterovir/Rhinovir PCR Nasal Influenza B PCR Nasal Influenza A PCR Nasal Parainfluen 1 PCR Nasal Parainfluen 2 PCR Nasal Parainfluen 3 PCR Nasal Parainfluen 4 PCR Nasal RSV (PCR) Nasal B.pertussis DNA PCR Nasal C.pneumoniae (PCR) Franco Human Metapneumo PCR Nasal M.pneumoniae (PCR) Nasal SARS-CoV-2 (PCR) - Rads (name of study) CT chest angio (PE study) Radiology: Prelim report reviewed, See rad report BLE venous dopplers Radiology: Prelim report reviewed, See rad report PD MEDICAL DECISION MAKING - ED course Complexity details: reviewed results, re-evaluated patient, considered differential, d/w patient ED course: CT chest angio (PE study) was performed twice per radiologist's recommendation due to suboptimal opacification of peripheral pulmonary tree. unfortunately, neither CT provided enough information for peripheral embolus r/o. There is a small abnormality noted in RLL. I reviewed with the patient that this could possibly represent a PE (I had already explained to him what a pulmonary embolus is, as well as it's causes and treatments, in lay-person terms). We discussed risks and benefits of anticoagulation and he prefers to not be started on anticoagulants at this time. There is no DVT seen on BLE venous dopplers. Will cover possible early infectious process with antibiotic (rocephin IVP, zithromax PO in ED and rx to complete z-pack). Departure - Departure Disposition: 01 Home, Self Care Clinical Impression: Pneumonia Condition: Good Instructions: ED Pneumonia Adult Prescriptions: Azithromycin [Zithromax] 250 mg PO DAILY #4 tablet Comments: Follow up with your primary care provider, next available appointment (if possible, by end of this week) Discharge Date/Time: 05/16/20 05:55
[2020-05-16 01:44] LABS: BASOPHILS % (AUTO) 0.3 %; HGB - HEMOGLOBIN 15.8 g/dL (14.0-18.0); LYMPHOCYTES % (AUTO) 10.3 %; MEAN CORPUSCULAR HEMOGLOBIN 27.4 pg (27.0-31.0); MEAN CORPUSCULAR HGB CONC 32.4 g/dL (32.0-36.0); MEAN CORPUSCULAR VOLUME 84.7 fL (80.0-94.0); MEAN PLATELET VOLUME 11.4 fL (7.4-11.4); MONOCYTES % (AUTO) 10.2 %; NEUTROPHILS % (AUTO) 77.9 %; PLT - PLATELET COUNT 238 10^3/uL (130-450); RED BLOOD COUNT 5.76 10^6/uL (4.70-6.10); RED CELL DISTRIBUTION WIDTH 13.5 % (12.0-15.0); WHITE BLOOD COUNT 16.4 x10^3/uL (4.8-10.8)
[2020-05-16 01:48] LABS: ABNORMAL LYMPHS % (MANUAL) 0 %
[2020-05-16 01:57] LABS: ALBUMIN 4.3 g/dL (3.2-5.5); BILIRUBIN,TOTAL 1.4 mg/dL (0.2-1.0); CALCIUM 9.2 mg/dL (8.5-10.3); CREATININE 0.9 mg/dL (0.6-1.2); TOTAL PROTEIN 8.5 g/dL (6.7-8.2)
[2020-05-16 02:11] LABS: BAND NEUTROPHILS % (MANUAL) 4 %; EOSINOPHILS # (MANUAL) 0.3 10^3/uL (0-0.7); LYMPHOCYTES # (MANUAL) 2.6 10^3/uL (1.5-3.5); LYMPHOCYTES % (MANUAL) 16 %; MONOCYTES # (MANUAL) 1.3 10^3/uL (0.0-1.0); PLATELET ESTIMATE, MANUAL NORMAL (130-450,000) (NORMAL); RBC MORPHOLOGY (MULTIPLE) NORMAL APPEARANCE (NORMAL)
[2020-05-16 02:12] LABS: DIFFERENTIAL COMMENT MANUAL DIFFERENTIAL
[2020-05-16] MEDS ORDERED: IOVERSOL 320 100 ML VIAL IVP ONE ×2 (02:12→03:03)
[2020-05-16] MEDS ORDERED: SODIUM CHLORIDE 0.9% 1,000 ML IV ONE (03:40)
[2020-05-16 03:44] LABS: BILIRUBIN,URINE NEGATIVE (NEGATIVE); GLUCOSE, URINE (UA) NEGATIVE (NEGATIVE); KETONES,URINE (UA) NEGATIVE (NEGATIVE); LEUKOCYTE ESTERASE, URINE NEGATIVE (NEGATIVE); NITRITE,URINE NEGATIVE (NEGATIVE); OCCULT BLOOD,URINE SMALL (NEGATIVE); PROTEIN,URINE NEGATIVE (NEGATIVE); UROBILINOGEN,URINE 0.2 (NORMAL) E.U./dL (NORMAL)
[2020-05-16 03:45] LABS: CLARITY,URINE CLEAR (CLEAR)
[2020-05-16 03:50] LABS: BACTERIA,URINE None Seen /HPF (None Seen); RBC,URINE 0-5 /HPF (0-5); SQUAMOUS EPITHELIAL CELL,UR RARE Squamous (<= Few)
[2020-05-16] MEDS ORDERED: MORPHINE 2 MG/ML CARPUJECT IVP STA (04:14)
[2020-05-16] MEDS: IOVERSOL 320 100 ML VIAL IVP ONE ×2 (04:25→04:26)
[2020-05-16 04:38] LABS: C. PNEUMONIAE- RESP PCR PANEL NOT DETECTED
[2020-05-16 05:32] VITALS: BP 141/90
[2020-05-16] MEDS ORDERED: cefTRIAXone 1 GM in SODIUM CHLORIDE 0.9% MINIBAG 100 ML IV STA (05:35)
[2020-05-16] MEDS ORDERED: cefTRIAXone 1 GM VIAL IVP STA (05:35)
[2020-05-16] MEDS ORDERED: AZITHROMYCIN 250 MG TABLET PO STA (05:35)
--- NOTE | 2020-05-16 07:37 | Ultrasound Report ---
PROCEDURE: Duplex Ext Veins Bilateral INDICATIONS: Recent swelling, mild right lower extremity swelling. Possible pulmonary was. TECHNIQUE: Real-time imaging, as well as color and pulse Doppler interrogation, were performed of the deep veins of both legs from the inguinal ligament to the popliteal fossa. COMPARISON: None FINDINGS: The deep veins are normally compressible, and free of intraluminal thrombus. Color and pu lse Doppler demonstrate normal phasic intravascular flow. There is normal augmentation response to d istal compression maneuver. IMPRESSION: No evidence of deep vein thrombosis involving either the right or left lower extremities. Reviewed by: Tsering Carlson MD, PhD on 05/16/2020 7:36 AM PST Approved by: Tsering Carlson MD, PhD on 05/16/2020 7:36 AM PST Station ID: [id number]
--- NOTE | 2020-05-16 08:25 | CT Report ---
PROCEDURE: ANGIO CHEST W/WO INDICATIONS: pleuritic right chest pain, recent surgery CONTRAST: IV CONTRAST: Optiray 320 ml: 80 PO CONTRAST: *NO PO CONTRAST TECHNIQUE: After the administration of intravenous contrast, 2 mm thick sections acquired from the pulmonary api iftikhar to the posterior costophrenic angles. 3-dimensional maximum intensity projection (MIP) coronal a nd sagittal reformats were then acquired through the thorax. For radiation dose reduction, the follow ing was used: automated exposure control, adjustment of mA and/or kV according to patient size. COMPARISON: CT of the abdomen and pelvis dated 11/02/2018 FINDINGS: Image quality: Suboptimal opacification of the pulmonary arterial tree, unable to exclude moderate an d small pulmonary emboli.. Pulmonary arteries: Pulmonary arteries are normal in size, and demonstrate no intraluminal filling d efects to suggest central pulmonary embolism. However, opacification of pulmonary arterial tree is fowler boptimal, and moderate or large emboli cannot be excluded. There are no emboli involving the main pul monary arteries and ozzy. Lungs and pleura: Patchy right basilar atelectasis and possible consolidation. Minimal right pleural effusion. No pleural effusions or pneumothorax. Central and peripheral airways are patent. Mediastinum: Heart size is normal, without pericardial effusion. No mediastinal or hilar adenopathy . Thoracic aorta is normal in caliber and enhancement. Esophagus is normal in caliber, without hiat al hernia. Bones and chest wall: No suspicious bony lesions. Ribs and thoracic spine appear intact throughout. The thyroid is normal. No axillary or supraclavicular adenopathy. Abdomen: Polycystic kidneys. IMPRESSION: 1. Suboptimal study for excluding ulnar emboli. No central pulmonary emboli identified. 2. Patchy right basilar atelectasis and possible consolidation. Minimal right pleural effusion. 3. Polycystic kidneys. A preliminary report with the above findings was provided at the time of the study by [employer]. Reviewed by: Davonte Mo MD on 05/16/2020 8:24 AM [facility] Approved by: Davonte Mo MD on 05/16/2020 8:24 AM PST Station ID: [id number]
== END 2020-05-16 05:55 | disposition home or self-care (01) ==
LOC: ED 00:24
DX: J18.9 Pneumonia, unspecified organism (principal); R22.41 Localized swelling, mass and lump, right lower limb; Z98.890 Other specified postprocedural states; I10 Essential (primary) hypertension; Q61.3 Polycystic kidney, unspecified; Z20.822 Contact with and (suspected) exposure to COVID-19
CPT/HCPCS: 0202U; 36415; 71275; 80053; 81001; 83690; 85025; 93005; 93970; 96361; 96374; 96375; 99284; A9270; Q9967; 81003; 87086

== ENCOUNTER 2020-05-17 09:03 | Emergency (ER) | payer OTHER ==
[2020-05-17] MEDS ORDERED: SODIUM CHLORIDE 0.9% 1,000 ML IV STA (09:30)
[2020-05-17 09:56] LABS: BASOPHILS % (AUTO) 0.3 %; EOSINOPHILS # (AUTO) 0.2 10^3/uL (0.0-0.7); EOSINOPHILS % (AUTO) 1.4 %; HCT - HEMATOCRIT 47.8 % (42.0-52.0); HGB - HEMOGLOBIN 15.3 g/dL (14.0-18.0); LYMPHOCYTES # (AUTO) 1.3 10^3/uL (1.5-3.5); LYMPHOCYTES % (AUTO) 11.1 %; MEAN CORPUSCULAR HEMOGLOBIN 27.5 pg (27.0-31.0); MEAN CORPUSCULAR VOLUME 85.8 fL (80.0-94.0); MEAN PLATELET VOLUME 11.3 fL (7.4-11.4); MONOCYTES # (AUTO) 1.2 10^3/uL (0.0-1.0); MONOCYTES % (AUTO) 10.3 %; NEUTROPHILS # (AUTO) 8.6 10^3/uL (1.5-6.6); NEUTROPHILS % (AUTO) 76.5 %; PLT - PLATELET COUNT 226 10^3/uL (130-450); RED BLOOD COUNT 5.57 10^6/uL (4.70-6.10); RED CELL DISTRIBUTION WIDTH 13.7 % (12.0-15.0); VBG HCO3 29.1 mmol/L (23-28); VBG PCO2 49.6 mmHg (41-51); VBG PH 7.386 (7.31-7.41); VBG PO2 38.8 mmHg (25-47); WHITE BLOOD COUNT 11.3 x10^3/uL (4.8-10.8)
[2020-05-17 09:57] LABS: VBG OXYGEN SATURATION 77.7 % (60-80); VBG TOTAL CO2 30.6 mmol/L (24-29)
[2020-05-17] MEDS ORDERED: IOVERSOL 320 100 ML VIAL IVP ONE ×2 (10:03→13:44)
[2020-05-17 10:18] LABS: BILIRUBIN,TOTAL 1.1 mg/dL (0.2-1.0); CALCIUM 9.5 mg/dL (8.5-10.3); CREATININE 0.9 mg/dL (0.6-1.2); POTASSIUM 4.3 mmol/L (3.5-5.0); TOTAL PROTEIN 8.1 g/dL (6.7-8.2)
--- NOTE | 2020-05-17 10:43 | CT Report ---
PROCEDURE: ANGIO CHEST W/WO INDICATIONS: r/o PE CONTRAST: IV CONTRAST: Optiray 320 ml: 80 PO CONTRAST: *NO PO CONTRAST TECHNIQUE: After the administration of intravenous contrast, 2 mm thick sections acquired from the pulmonary api iftikhar to the posterior costophrenic angles. 3-dimensional maximum intensity projection (MIP) coronal a nd sagittal reformats were then acquired through the thorax. For radiation dose reduction, the follow ing was used: automated exposure control, adjustment of mA and/or kV according to patient size. COMPARISON: 05/16/2020 FINDINGS: Image quality: Excellent. Pulmonary arteries: Pulmonary arteries are normal in size, and demonstrate no intraluminal filling d efects to suggest central pulmonary embolism. Lungs and pleura: Again noted is small right pleural effusion with adjacent posterior medial right lo wer lobe infiltrate/atelectasis. Dependent atelectasis in posterior aspect of left lung base is also seen. No pneumothorax. Central and peripheral airways are patent. Mediastinum: Heart size is normal, without pericardial effusion. Borderline prominent right hilar ly mph node measures 1 cm in short axis diameter is seen. 1.2 cm subcarinal node is also noted. Thoracic aorta is normal in caliber and enhancement. Esophagus is normal in caliber, without hiatal hernia. Bones and chest wall: No suspicious bony lesions. Ribs and thoracic spine appear intact throughout. The thyroid is normal. No axillary or supraclavicular adenopathy. Abdomen: Numerous bilateral renal cysts are again seen consistent with polycystic kidney. IMPRESSION: 1. No evidence of pulmonary emboli. No thoracic aortic aneurysm or gross dissection. 2. Small right pleural effusion and infiltrate/atelectasis in posterior medial right lower lobe pneum onia right lung base. Dependent atelectasis also seen scattered in posterior lateral periphery of lef t lung base. No pneumothorax. Airway is patent. 3. Mildly prominent mediastinal and right hilar lymph nodes suggestive of reactive inflammatory adeno nba. 4. Polycystic kidneys unchanged from study. Reviewed by: Deepak Sol MD on 05/17/2020 9:41 AM [facility] Approved by: Deepak Sol MD on 05/17/2020 9:41 AM [facility] Station ID: [id number]
[2020-05-17 13:35] VITALS: BP 139/88
--- NOTE | 2020-05-17 13:41 | ED Physician Documentation ---
History of Present Illness - Stated complaint Stated Complaint: COUGH - Chief complaint Chief Complaint: Resp - History obtained from History obtained from: Patient - Additonal information Additional information: 54yM with pmh htn, hld, omi, recent visit yesterday with dx of RLL pna presents after being sent back in by his pcp Dr. Cedillo to r/o PE. patient had cta yesterday that ruled out central PE but was partly limited by artifact. he was discharged on abx and took one dose then called his pcp because he coughed up two quarter-sized blood clots. pcp recommended return to the ed. patient denies sob or pleurisy at present but states he is still having fevers after his first dose of abx with tmax 101 overnight. Review of Systems Ten Systems: 10 systems reviewed and negative Constitutional: reports: Fever, Chills, Myalgias Respiratory: reports: Cough PD PAST MEDICAL HISTORY - Past Medical History Past Medical History: Yes Cardiovascular: Hypertension, High cholesterol Respiratory: Sleep apnea Neuro: None Endocrine/Autoimmune: None GI: None : None HEENT: None Psych: None Musculoskeletal: None Derm: None - Past Surgical History Past Surgical History: Yes Ortho: Rotator cuff repair - Present Medications Home Medications: Ambulatory Orders Medication Instructions Recorded Confirmed Azithromycin [Zithromax] 250 mg PO DAILY #4 tablet 05/16/20 05/17/20 - Allergies Allergies/Adverse Reactions: Allergies Allergy/AdvReac Type Severity Reaction Status Date / Time bee venom protein (honey bee) Allergy Unknown Verified 05/17/20 09:12 - Social History Does the pt smoke?: No Smoking Status: Never smoker Does the pt drink ETOH?: No Does the pt have substance abuse?: No - Immunizations Immunizations are current?: Yes - POLST Patient has POLST: No PD ED PE NORMAL - Vitals Vital signs reviewed: Yes - General General: Alert and oriented X 3 - HEENT HEENT: Atraumatic, PERRL, EOMI, Moist mucous membranes - Neck Neck: Supple, no meningeal sign - Cardiac Cardiac: RRR - Respiratory Respiratory: Other (RLL crackles. otherwise clear BL with no increased wob) - Abdomen Abdomen: Normal bowel sounds, Non tender, Non distended - Male Male : Deferred - Rectal Rectal: Deferred - Back Back: No spinal TTP - Derm Derm: Normal color - Extremities Extremities: No edema - Neuro Neuro: Alert and oriented X 3 - Psych Psych: Normal mood, Normal affect Results - Vitals Vitals: Vital Signs - 24 hr 05/17/20 05/17/20 09:05 13:12 Temperature 36.5 C 36.6 C Heart Rate 88 82 Respiratory 18 16 Rate Blood Pressure 145/88 H 139/88 H O2 Saturation 96 98 Oxygen O2 Source Room air - Labs Labs: Laboratory Tests 05/17/20 05/17/20 05/17/20 09:44 09:44 09:44 WBC 11.3 H RBC 5.57 Hgb 15.3 Hct 47.8 MCV 85.8 MCH 27.5 MCHC 32.0 RDW 13.7 Plt Count 226 MPV 11.3 Neut # (Auto) 8.6 H Lymph # (Auto) 1.3 L [place] # (Auto) 1.2 H Eos # (Auto) 0.2 Baso # (Auto) 0.0 Absolute Nucleated RBC 0.00 Nucleated RBC % 0.0 VBG pH VBG pCO2 VBG pO2 VBG HCO3 VBG Total CO2 VBG O2 Saturation VBG Base Excess Sodium 143 Potassium 4.3 Chloride 100 L Carbon Dioxide 27 Anion Gap 16.0 H BUN 14 Creatinine 0.9 Estimated GFR (MDRD) 88 L Glucose 103 H Lactic Acid Calcium 9.5 Total Bilirubin 1.1 H AST 17 ALT 29 Alkaline Phosphatase 33 L Troponin I High Sens < 2.3 L B-Natriuretic Peptide Total Protein 8.1 Albumin 4.0 Globulin 4.1 Albumin/Globulin Ratio 1.0 Lipase 28 05/17/20 05/17/20 05/17/20 09:44 09:44 09:44 WBC RBC Hgb Hct MCV MCH MCHC RDW Plt Count MPV Neut # (Auto) Lymph # (Auto) [place] # (Auto) Eos # (Auto) Baso # (Auto) Absolute Nucleated RBC Nucleated RBC % VBG pH 7.386 VBG pCO2 49.6 VBG pO2 38.8 VBG HCO3 29.1 H VBG Total CO2 30.6 H VBG O2 Saturation 77.7 VBG Base Excess 3.0 H Sodium Potassium Chloride Carbon Dioxide Anion Gap BUN Creatinine Estimated GFR (MDRD) Glucose Lactic Acid 0.9 Calcium Total Bilirubin AST ALT Alkaline Phosphatase Troponin I High Sens B-Natriuretic Peptide 14 Total Protein Albumin Globulin Albumin/Globulin Ratio Lipase PD MEDICAL DECISION MAKING - ED course ED course: 54-year-old man with recent diagnosis of pneumonia presents to rule out PE. He has had 3 [address] is that were negative for PE and this third 1 today was a good quality study. His test for heart strain were normal. Clinically, he is not short of breath, has no increased work of breathing and has normal vital signs. I discussed with the patient that his hemoptysis can be consistent with pneumonia and that it appears unlikely that he has a pulmonary embolism at this time. With that in mind, return precautions were discussed and he is aware of need for close follow-up with his primary doctor. Departure - Departure Disposition: Home, Self Care Clinical Impression: Pneumonia, Hemoptysis Condition: Good Instructions: Pneumonia Dc Comments: You were seen in the emergency department to rule out blood clots in the lung. At this point, a third CTA has been performed that does not show any evidence of pulmonary embolism or blood clot. Your heart does not appear to be under strain according to an ekg and bloodwork including a troponin and BNP (heart blood tests). You do have fluid at the base of your right lung called a pleural effusion as well as signs of pneumonia in that area. Coughing up blood can be related to pneumonia. If you find that you are having worsening symptoms and are losing a significant amount of blood in your cough then you should return immediately to the emergency room. Continue taking your antibiotics. If you do not see improvement in 24 to 48 hours then return to the emergency room immediately. Follow-up with your primary doctor this week. Return for any new or worsening symptoms or other concerns. Discharge Date/Time: 05/17/20 13:48
== END 2020-05-17 13:48 | disposition home or self-care (01) ==
LOC: ED 09:03
DX: J18.9 Pneumonia, unspecified organism (principal); R04.2 Hemoptysis
CPT/HCPCS: 71275; 80053; 82803; 83605; 83690; 83880; 84484; 85025; 87040; 93005; 96360; 99283; 99284; Q9967

== ENCOUNTER 2020-08-06 15:11 | Outpatient (CLI) | payer OTHER ==
--- NOTE | 2020-08-07 08:59 | SLEEP CARE CONSULTATION ---
Information from patient questionnaire entered by Gardenia Patricia. I have reviewed and concur with the information entered by Gardenia Patricia. This document represents the service I personally performed and the decisions made by me, Omid Epperson MD, [facility]. History of Present Illness Service Date and Time: 08/06/2020 1511 Previous diagnosis: Moderate, Obstructive Sleep Apnea-Hypopnea Syndrome AHI: 17.8 Reason for follow up: annual (Last seen 01/2019) Equipment type: CPAP Equipment obtained from: [employer] Mask style: Nasal pillows Prior sleep studies: Yes Year and Where: 2019 [facility] additional information: Mr. Tinajero was diagnosed to have moderate obstructive sleep apnea-hypopnea syndrome and returns today for follow up of CPAP therapy. The patient purchased the device from [employer] in [place] and was fitted with ResMed AirFit P10 nasal pillows. He continues to use the device nightly and all through the night. The compliance report shows that he uses the device 175 nights out of the past 180 nights, averaging 5.7 hours a night. He complains of no particular problem with the device such as soreness on the face, dry nose, epistaxis, nasal congestion or headache. He thinks that the pressure of 4 - 15 cmH2O is comfortable. On the CPAP therapy he notices improvement in his sleep quality, and that he wakes up feeling fresher in the morning and more awake/alert during the day. His notices no snore at all. [place] Sleepiness Scale score is 4. The average residual AHI is 1.5; and average time in large leak per day is 5 seconds a night. The 90th percentile pressure is 6.5 cmH2O. Sleep Study - Results Year and Where: \ CPAP Compliance Data - Data Reviewed with Patient Average duration of nightly device use: 5 h 41 min Compliance rate %: 68.9 Current pressure setting (cmH2O): 4-15 Humidity settin Heated hose settin Average residual AHI: 1.5 Average large leak: 5 sec Subjective Missed days of use due to: reports: travel Current pressure setting perceived as: comfortable Initial [place] Sleepiness Scale score: 9 (in 2019) Current [place] Sleepiness Scale score: 4 Allergies and Home Medications Drug allergies reviewed: Yes Home medication list reviewed: Yes Review of Systems Review of systems same as previous: Yes Physical Exam Height: 5 ft 11 in Weight: 260 lb Body Mass Index: 36.2 BMI Classification: Obese Impression and Plan IMPRESSION: 1. Obstructive Sleep Apnea-Hypopnea Syndrome, moderate (AHI was 17.8 in 2019) with the patient continuing to do well on nasal CPAP therapy. He has excellent compliance and significant clinical benefits. The current pressure appears effective and comfortable. Overall, he is very satisfied with treatment and plans to continue with it long-term. No adjustment is necessary today. PLAN: 1. Continue with autoCPAP set at 4 -15 cm H2O. 2. Try to lose weight 3. Try Respironics DreamWear nasal cushion mask and ResMed N30i mask 4. Return in one year for follow up or earlier if there is any problem with the treatment. Counseling Topics: Weight control Visit Type: In Office Time Spent with Patient (minutes): 15 Provider Statement: I spent 100% of the Face to Face Visit with the patient with greater than 50% spent counseling the patient and coordination of care.
== END 2020-08-06 15:12 | disposition home or self-care (01) ==
LOC: SC 15:11
PROVIDERS: ATTEND Internal Medicine Pulmonary Disease
DX: G47.33 Obstructive sleep apnea (adult) (pediatric) (principal); E66.9 Obesity, unspecified; Z68.36 Body mass index [BMI] 36.0-36.9, adult
CPT/HCPCS: 99212

== ENCOUNTER 2020-08-15 08:16 | Outpatient (CLI) | payer OTHER ==
--- NOTE | 2020-08-15 17:36 | XRAY Report ---
PROCEDURE: Chest 2 View X-Ray INDICATIONS: PNEUMONIA TECHNIQUE: 2 view(s) of the chest. COMPARISON: CT angiogram of the chest 05/17/2020.. FINDINGS: Surgical changes and devices: None. Lungs and pleura: No pleural effusions or pneumothorax. Lungs are clear. Mediastinum: Mediastinal contours are normal. Heart size is normal. Bones and chest wall: Thoracic spine degenerative disc disease. No suspicious bony abnormalities. So ft tissues appear unremarkable. IMPRESSION: No acute cardiopulmonary disease process. Reviewed by: Tsering Carlson MD, PhD on 08/15/2020 5:35 PM PDT Approved by: Tsering Carlson MD, PhD on 08/15/2020 5:35 PM PDT Station ID: [id number]
== END 2020-08-15 08:17 | disposition home or self-care (01) ==
LOC: DI.N 08:16
PROVIDERS: ATTEND Internal Medicine
DX: J18.9 Pneumonia, unspecified organism (principal)

== ENCOUNTER 2020-08-15 08:21 | Outpatient (CLI) | payer OTHER ==
[2020-08-15 12:39] LABS: ESTIMATED AVERAGE GLUCOSE 108 mg/dL (70-100); HEMOGLOBIN A1c% 5.4 % (4.27-6.07)
[2020-08-15 12:56] LABS: CHOL/HDL RATIO 6.2 (<5.0); CHOLESTEROL 224 mg/dL; HDL CHOLESTEROL 36 mg/dL; LDL CHOLESTEROL,CALCULATED 168 mg/dL; LDL/HDL RATIO 4.7 (<3.6); TRIGLYCERIDES 100 mg/dL; VLDL CHOLESTEROL 20 mg/dL
== END 2020-08-15 08:22 | disposition home or self-care (01) ==
LOC: LAB.N 08:21
PROVIDERS: ATTEND Internal Medicine
DX: E78.5 Hyperlipidemia, unspecified (principal); R73.01 Impaired fasting glucose
CPT/HCPCS: 36415; 80061; 83036; 83721

== ENCOUNTER 2020-08-15 19:18 | Emergency (ER) | payer OTHER ==
[2020-08-15 19:45] LABS: BASOPHILS # (AUTO) 0.1 10^3/uL (0.0-0.1); BASOPHILS % (AUTO) 0.7 %; EOSINOPHILS # (AUTO) 0.2 10^3/uL (0.0-0.7); EOSINOPHILS % (AUTO) 2.6 %; HGB - HEMOGLOBIN 16.2 g/dL (14.0-18.0); LYMPHOCYTES # (AUTO) 2.4 10^3/uL (1.5-3.5); LYMPHOCYTES % (AUTO) 26.3 %; MEAN CORPUSCULAR HGB CONC 32.4 g/dL (32.0-36.0); MEAN CORPUSCULAR VOLUME 83.3 fL (80.0-94.0); MEAN PLATELET VOLUME 11.5 fL (7.4-11.4); MONOCYTES # (AUTO) 0.7 10^3/uL (0.0-1.0); MONOCYTES % (AUTO) 7.5 %; NEUTROPHILS # (AUTO) 5.8 10^3/uL (1.5-6.6); NEUTROPHILS % (AUTO) 62.7 %; PLT - PLATELET COUNT 267 10^3/uL (130-450); RED CELL DISTRIBUTION WIDTH 13.9 % (12.0-15.0); WHITE BLOOD COUNT 9.2 x10^3/uL (4.8-10.8)
[2020-08-15 19:55] LABS: BILIRUBIN,URINE NEGATIVE (NEGATIVE); GLUCOSE, URINE (UA) NEGATIVE (NEGATIVE); KETONES,URINE (UA) NEGATIVE (NEGATIVE); LEUKOCYTE ESTERASE, URINE NEGATIVE (NEGATIVE); NITRITE,URINE NEGATIVE (NEGATIVE); OCCULT BLOOD,URINE NEGATIVE (NEGATIVE); PH,URINE 6.5 PH (5.0-7.5); PROTEIN,URINE NEGATIVE (NEGATIVE); UROBILINOGEN,URINE 0.2 (NORMAL) E.U./dL (NORMAL)
[2020-08-15 19:56] LABS: CLARITY,URINE CLEAR (CLEAR)
[2020-08-15 19:56] LABS: ALBUMIN 4.5 g/dL (3.2-5.5); ALBUMIN/GLOBULIN RATIO 1.3 (1.0-2.2); BILIRUBIN,TOTAL 0.5 mg/dL (0.2-1.0); CALCIUM 9.5 mg/dL (8.5-10.3); CREATININE 1.3 mg/dL (0.6-1.2); TOTAL PROTEIN 7.9 g/dL (6.7-8.2)
--- NOTE | 2020-08-15 21:24 | ED Physician Documentation ---
PD HPI BACK PAIN - Stated complaint Stated Complaint: BACK PX,NAUSEA,FEVER - Chief complaint Chief Complaint: Abd Pain - History obtained from History obtained from: Patient - History of Present Illness Timing - onset: Yesterday Timing - details: Gradual onset, Intermittant, Waxing and waning Pain level now: 5 Location: Mid, Lower, Left Quality: Pain Associated symptoms: No: Fever (Tmax 99.5), Weakness, Numbness, Incontinent of urine, Unable to urinate, Hematuria, Incontinent of stool Improves with: Other (no ameliorating factors) Worsened by: Other (no exacerbating factors) Similar symptoms before: Has not had sx before Recently seen: Clinic - Additional information Additional information: c/o episodic left mid/low back pain since yesterday, radiates to left flank, associated with nausea but no vomiting. Also notes elevated temperature to Tmax 99.5. He was evaluated in outpatient clinic earlier today , had blood tests (normal WBC, minimally elevated creatinine, mildly elevated BUN), normal UA (macroscopic), and CXR (NAD). Review of Systems Constitutional: denies: Fever (Tmax 99.5), Chills, Sweats Cardiac: reports: Reviewed and negative Respiratory: reports: Reviewed and negative GI: reports: Nausea. denies: Abdominal Pain, Vomiting, Constipation, Diarrhea : denies: Dysuria, Frequency, Hematuria Skin: denies: Rash Musculoskeletal: reports: Back pain Neurologic: denies: Generalized weakness, Focal weakness, Numbness PD PAST MEDICAL HISTORY - Past Medical History Cardiovascular: Hypertension, High cholesterol Respiratory: Sleep apnea Neuro: None Endocrine/Autoimmune: None GI: None : None HEENT: None Psych: None Musculoskeletal: None Derm: None - Past Surgical History Past Surgical History: Yes Ortho: Rotator cuff repair - Present Medications Home Medications: Ambulatory Orders Medication Instructions Recorded Confirmed Ondansetron Odt [Zofran] 4 mg TL Q6H PRN #10 tablet 08/15/20 - Allergies Allergies/Adverse Reactions: Allergies Allergy/AdvReac Type Severity Reaction Status Date / Time bee venom protein (honey bee) Allergy Unknown Verified 08/15/20 19:22 - Social History Does the pt smoke?: No Smoking Status: Never smoker Does the pt drink ETOH?: No Does the pt have substance abuse?: No - Immunizations Immunizations are current?: Yes - POLST Patient has POLST: No PD ED PE NORMAL - Vitals Vital signs reviewed: Yes - General General: Alert and oriented X 3, No acute distress, Well developed/nourished - Cardiac Cardiac: RRR, No murmur - Respiratory Respiratory: No respiratory distress, Clear bilaterally - Abdomen Abdomen: Normal bowel sounds, Soft, Non tender, Non distended, No organomegaly - Back Back: No CVA TTP - Derm Derm: Normal color, Warm and dry, No rash Results - Vitals Vitals: Vital Signs - 24 hr 08/15/20 08/15/20 08/15/20 19:23 21:19 22:11 Temperature 36.8 C Heart Rate 90 80 70 Respiratory 18 18 16 Rate Blood Pressure 168/88 H 150/96 H 130/99 H O2 Saturation 100 98 96 08/16/20 08/16/20 00:09 00:12 Temperature 36.8 C Heart Rate 77 77 Respiratory 17 17 Rate Blood Pressure 145/90 H 145/90 H O2 Saturation 97 97 Oxygen O2 Source Room air - Labs Labs: Laboratory Tests 08/15/20 08/15/20 08/15/20 19:34 19:38 19:38 WBC 9.2 RBC 6.00 Hgb 16.2 Hct 50.0 MCV 83.3 MCH 27.0 MCHC 32.4 RDW 13.9 Plt Count 267 MPV 11.5 H Neut # (Auto) 5.8 Lymph # (Auto) 2.4 [place] # (Auto) 0.7 Eos # (Auto) 0.2 Baso # (Auto) 0.1 Absolute Nucleated RBC 0.00 Nucleated RBC % 0.0 Sodium 141 Potassium 4.0 Chloride 103 Carbon Dioxide 28 Anion Gap 10.0 BUN 24 H Creatinine 1.3 H Estimated GFR (MDRD) 57 L Glucose 109 H Calcium 9.5 Total Bilirubin 0.5 AST 17 ALT 20 Alkaline Phosphatase 38 L Total Protein 7.9 Albumin 4.5 Globulin 3.4 Albumin/Globulin Ratio 1.3 Lipase 35 Urine Color YELLOW Urine Clarity CLEAR Urine pH 6.5 Ur Specific [place] 1.010 Urine Protein NEGATIVE Urine Glucose (UA) NEGATIVE Urine Ketones NEGATIVE Urine Occult Blood NEGATIVE Urine Nitrite NEGATIVE Urine Bilirubin NEGATIVE Urine Urobilinogen 0.2 (NORMAL) Ur Leukocyte Esterase NEGATIVE Ur Microscopic Review NOT INDICATED Urine Culture Comments NOT INDICATED - Rads (name of study) CT A/P with IV contrast Radiology: Prelim report reviewed, See rad report PD MEDICAL DECISION MAKING - ED course Complexity details: reviewed old records, reviewed results, re-evaluated patient, considered differential, d/w patient Departure - Departure Disposition: 01 Home, Self Care Clinical Impression: Back pain Condition: Good Instructions: ED Acute Pain [facility] Follow-Up: Anirudh Cedillo MD [Primary Care Provider] - Within 3 Days Prescriptions: Ondansetron Odt [Zofran] 4 mg TL Q6H PRN #10 tablet PRN Reason: Nausea / Vomiting Discharge Date/Time: 08/16/20 00:12
[2020-08-15] MEDS ORDERED: SODIUM CHLORIDE 0.9% 1,000 ML IV STA (21:48)
[2020-08-15] MEDS ORDERED: ONDANSETRON 4 MG/2 ML VIAL IVP STA (21:48)
[2020-08-15] MEDS ORDERED: KETOROLAC 30 MG/ML VIAL IVP STA (21:48)
[2020-08-15] MEDS ORDERED: IOPAMIDOL-300 100 ML VIAL ONE (21:54)
[2020-08-15] MEDS ORDERED: IOPAMIDOL-300 100 ML VIAL IVP ONE (22:41)
[2020-08-16 00:10] VITALS: BP 145/90
--- NOTE | 2020-08-16 09:19 | CT Report ---
PROCEDURE: Abdomen/Pelvis W INDICATIONS: right flank/right paralumbar pain CONTRAST: IV CONTRAST: Isovue 300 ml: 100 PO CONTRAST: *NO PO CONTRAST TECHNIQUE: After the administration of nonionic contrast, 5 mm thick sections acquired from the diaphragms to th e symphysis. 5 mm thick coronal and sagittal reformats were acquired. For radiation dose reduction, the following was used: automated exposure control, adjustment of mA and/or kV according to patient size. COMPARISON: CT abdomen/pelvis 11/02/2018 and prior retroperitoneal ultrasound study.. FINDINGS: Image quality: Excellent. ABDOMEN: Lung bases: Lung bases are clear. Heart size is normal. Solid organs: Liver and spleen are normal in size and enhancement. Gallbladder is partially contrac linda Biliary system is non dilated. Pancreas enhances normally. No adrenal nodules. Kidneys demons trate numerous bilateral small moderate and large renal cortical cysts consistent with polycystic kid reynold disease. The visualized cortex is normal in enhancement, without hydronephrosis. Peritoneum and bowel: Bowel loops demonstrate normal wall thickness and caliber. No free fluid or a ir. Nodes and vessels: No retroperitoneal or mesenteric adenopathy by size criteria. Aorta and inferior vena cava are normal in size. Miscellaneous: No ventral hernias. PELVIS: Genitourinary: Bladder wall thickness is normal. Miscellaneous: No inguinal hernias or adenopathy. Bones: No suspicious bony lesions. No vertebral body compression fractures. IMPRESSION: A source of acute pain is not found. Polycystic kidney disease without hepatic cysts is noted. Reviewed by: Bradford Fitzpatrick MD on 08/16/2020 9:18 AM PDT Approved by: Bradford Fitzpatrick MD on 08/16/2020 9:18 AM PDT Station ID: [id number]
== END 2020-08-16 00:12 | disposition home or self-care (01) ==
LOC: ED 19:18
DX: M54.9 Dorsalgia, unspecified (principal); R11.0 Nausea; J18.9 Pneumonia, unspecified organism; E78.5 Hyperlipidemia, unspecified; R73.01 Impaired fasting glucose
CPT/HCPCS: 36415; 71046; 74177; 80053; 80061; 81003; 83036; 83690; 85025; 96361; 96374; 96375; 99284; Q9967; 81001; 83721; 87086

== ENCOUNTER 2020-12-18 08:00 | Outpatient (CLI) | payer OTHER ==
[2020-12-18 12:51] LABS: ALT ALANINE AMINOTRANSFERASE 22 IU/L (10-60); CHOL/HDL RATIO 4.2 (<5.0); CHOLESTEROL 126 mg/dL; HDL CHOLESTEROL 30 mg/dL; LDL CHOLESTEROL,CALCULATED 81 mg/dL; LDL/HDL RATIO 2.7 (<3.6); TRIGLYCERIDES 74 mg/dL; VLDL CHOLESTEROL 15 mg/dL
== END 2020-12-18 23:59 | disposition home or self-care (01) ==
LOC: LAB.WCP 08:00
PROVIDERS: ATTEND Internal Medicine
DX: E78.5 Hyperlipidemia, unspecified (principal); Z12.5 Encounter for screening for malignant neoplasm of prostate
CPT/HCPCS: 36415; 80061; 83721; 84153; 84460

== ENCOUNTER 2021-02-21 08:00 | Outpatient (CLI) | payer OTHER ==
[2021-02-21 12:20] LABS: CALCIUM 9.7 mg/dL (8.5-10.3); CREATININE 0.9 mg/dL (0.6-1.2); POTASSIUM 4.5 mmol/L (3.5-5.0)
[2021-02-21 12:57] LABS: BILIRUBIN,URINE NEGATIVE (NEGATIVE); GLUCOSE, URINE (UA) NEGATIVE (NEGATIVE); KETONES,URINE (UA) NEGATIVE (NEGATIVE); LEUKOCYTE ESTERASE, URINE NEGATIVE (NEGATIVE); NITRITE,URINE NEGATIVE (NEGATIVE); OCCULT BLOOD,URINE NEGATIVE (NEGATIVE); PH,URINE 6.5 PH (5.0-7.5); PROTEIN,URINE NEGATIVE (NEGATIVE); UROBILINOGEN,URINE 0.2 (NORMAL) E.U./dL (NORMAL)
[2021-02-21 12:59] LABS: CLARITY,URINE CLEAR (CLEAR)
[2021-02-21 13:27] LABS: RBC,URINE 0-5 /HPF (0-5); SQUAMOUS EPITHELIAL CELL,UR FEW Squamous (<= Few); WBC,URINE 0-3 /HPF (0-3)
[2021-02-21 13:28] LABS: BACTERIA,URINE Few /HPF (None Seen)
== END 2021-02-21 23:59 | disposition home or self-care (01) ==
LOC: LAB.WCP 08:00
PROVIDERS: ATTEND Internal Medicine Nephrology
DX: N05.9 Unspecified nephritic syndrome with unspecified morphologic changes (principal); N30.00 Acute cystitis without hematuria
CPT/HCPCS: 36415; 80048; 81001; 87086

== ENCOUNTER 2021-03-13 08:00 | Outpatient (CLI) | payer OTHER ==
[2021-03-14 12:36] LABS: CALCIUM 9.3 mg/dL (8.5-10.3); CREATININE 0.8 mg/dL (0.6-1.2); POTASSIUM 4.2 mmol/L (3.5-5.0)
== END 2021-03-13 23:59 | disposition home or self-care (01) ==
LOC: LAB.WCP 08:00
PROVIDERS: ATTEND Internal Medicine Nephrology
DX: N05.9 Unspecified nephritic syndrome with unspecified morphologic changes (principal)
CPT/HCPCS: 36415; 80048